=== PATIENT | male | born 2000 | race Two or more races ===

== ENCOUNTER 2025-02-27 13:17 | Emergency (ER) | payer MEDICAID, SELFPAY ==
[2025-02-27 13:51] VITALS: BP 145/84; PULSE 96; RESP 18; TEMP 36.8; O2SAT 99
--- NOTE | 2025-02-27 13:56 | XR_ITS ---
Examination: CT abdomen with intravenous contrast CT pelvis with intravenous contrast 2-D coronal reconstructions 2-D sagittal reconstructions Date and time of exam:February 27, 2025, 5003 hours Comparison March 24, 2019 INDICATIONS: Generalized abdominal pain with nausea vomiting today. CTDI: vol (mGy) 9.25 DLP: (mGycm) 534 Technique: Multiple axial sections of the abdomen and pelvis have been obtained. 64 slice high-resolution scanner used. 3 mm axial sections have been obtained, post intravenous injection 60 cc of Isovue 370 2-D sagittal, coronal reconstructions obtained. Low dose protocols were performed. One or more of the following dose reduction techniques were used; automated exposure control, adjustment of the mA and/or KV according to patient size, use of iterative reconstruction technique. Findings: Diffuse fatty infiltration throughout the liver No definite gallstones Spleen is not enlarged Left adrenal mass, 4.1 cm No renal or ureteral calculi, no hydronephrosis Aorta normal size Normal appendix The entire colon shows mild wall thickening and hyperemia No bowel obstruction No diverticulitis No prostatomegaly Urinary bladder intact Moderate disc narrowing L4-L5, L5-S1 IMPRESSION: Indeterminate left adrenal mass 4.1 cm, recommend MRI abdomen adrenal glands follow-up, pre and postcontrast Normal appendix Diffuse nonspecific colitis pattern, differential would include Crohn's disease, ulcerative colitis
--- NOTE | 2025-02-27 13:56 | PD.EDRME ---
Rapid Medical Screening Exam RME Arrival date/time: 02/27/25 13:17 24-year-old male presents to the emergency dept today complains of abdominal pain Chief Complaint: Nausea/Vomiting/Diarrhea Time Seen by Provider: 02/27/25 13:54 Vital signs: Vital Signs Temperature 98.3 F 02/27/25 13:51 Pulse Rate 96 02/27/25 13:51 Respiratory Rate 18 02/27/25 13:51 Blood Pressure 145/84 H 02/27/25 13:51 Pulse Oximetry (%) 99 02/27/25 13:51 Oxygen Delivery Method Room Air 02/27/25 13:51
--- NOTE | 2025-02-27 14:13 | PD.EDABDPN ---
ED Abdominal Pain RME/HPI General Chief Complaint: Nausea/Vomiting/Diarrhea Stated complaint: VOMITING SINCE 5AM, ABD PAIN Time seen by provider: 02/27/25 13:54 Arrival date/time: 02/27/25 13:17 RME / HPI RME / HPI narrative: 02/27/25 13:17 24-year-old male presents to the emergency dept today complains of abdominal pain DR. GAONA MAIN ED EVALUATION: 24 year old male with past medical history significant for Down Syndrome presents to the Emergency Department brought in by his [id number] with complaint of abdominal pain with associated nausea and vomiting since 5 AM today. Per [id number], patient also has been having dark stools. She also mentions that the patient started not wanting to even drink Pedialyte and was dry heaving. Patient denies any fevers, chills, dysuria, or any other symptoms at this time. Related Data Previous Rx's ?Medication ?Instructions ?Recorded alprazolam 0.25 mg tablet (Xanax) 0.25 mg PO TID PRN anxiety #14 tabs 07/09/18 hydrocortisone 2.5 % topical cream 1 applicatio AR QDAY PRN 09/01/19 with perineal applicator hemorrhoids #30 grams psyllium husk 3.4 gram/5.4 gram 1 tsp PO BID #283 grams 09/01/19 oral powder Allergies Allergy/AdvReac Type Severity Reaction Status Date / Time No Known Allergies Allergy Verified 02/27/25 13:20 Review of Systems Review of Systems Systems Reviewed: All systems reviewed, normal except as documented Past Medical History Past Medical History OTHER HISTORY: Positive Down Syndrome Social History SMOKING STATUS: Never smoker SUBSTANCE USE: does not use ALCOHOL: Never ED Exam Narrative Physical exam: GENERAL APPEARANCE: alert and oriented x 4, well-developed, well-nourished, no acute distress VITALS: All vitals were reviewed and the pulse ox is 99% on room air, which is normal according to my interpretation. HEENT: Normocephalic, atraumatic; pupils equal, round, reactive to light; EOMI; mucous membranes pink, moist; oropharynx clear NECK: Supple LUNGS: CTABL; no wheezes, no rales, no rhonchi HEART: Regular rate, regular rhythm; normal S1, S2; no murmurs ABDOMEN: normal BS; there is right lower abdominal tenderness, with guarding; no masses, no organomegaly, no hernia BACK: no CVA tenderness EXTREMITIES: atraumatic; no edema NEUROLOGIC: awake; alert and oriented x4; cranial nerves II-XII grossly intact; no focal sensory or motor deficits PSYCHIATRIC: appropriate mood and affect SKIN: warm, dry, normal color; no rashes Course Quality Measures none Orders Category Date Time Status CT Screening NOW Care 02/27/25 13:56 Active Insert IV NOW Care 02/27/25 13:[address] abdomen pelvis w con Stat Exams 02/27/25 13:56 Completed CBC Stat Lab 02/27/25 14:11 Completed Comprehensive Metabolic Panel Stat Lab 02/27/25 14:11 Completed Lipase Stat Lab 02/27/25 14:11 Completed UA, C/S IF [Urinalysis, C/S if Indicated] Stat Lab 02/27/25 15:54 Completed CIPROFLOXACIN/D5w 400 MG IVPB [Cipro Ivpb] Med 02/27/25 15:50 Discontinued 400 mg in 200 ml IV X1 Metoclopramide Inj [Reglan Inj] Med 02/27/25 17:16 Discontinued 10 mg IVP X1 ONE Morphine Inj Med 02/27/25 14:13 Discontinued 5 mg IVP X1 ONE Morphine Inj Med 02/27/25 16:39 Discontinued 5 mg IVP X1 ONE Ondansetron Inj [Zofran Inj] Med 02/27/25 14:13 Discontinued 4 mg IV X1 ONE Ondansetron Odt [Zofran Odt] Med 02/27/25 13:56 Discontinued 4 mg PO X1 ONE Sodium Chloride 0.9% 1000 ml [Ns] 1,000 ml Med 02/27/25 15:50 Discontinued IV 999 mls/hr metroNIDAZOLE/NS 500 MG IVPB [Flagyl 500 mg IV] Med 02/27/25 15:50 Active 500 mg in 100 ml IV Q8HR Vital Signs Vital signs: Vital Signs Temperature 98.3 F 02/27/25 13:51 Pulse Rate 96 02/27/25 13:51 Respiratory Rate 18 02/27/25 13:51 Blood Pressure 145/84 H 02/27/25 13:51 Pulse Oximetry (%) 99 02/27/25 13:51 Oxygen Delivery Method Room Air 02/27/25 13:51 Abdominal Pain MDM MDM Narrative MDM Narrative:: I, Pat Mert, am scribing for and in the presence of Dr. Gaona. Patient data External records reviewed:: [facility] previous records (Reviewed last ED visit dated 07/14/22, discharged with the following: Chest wall pain) Clinical information provided by:: patient and family ([id number]) Social determinants that could affect healthcare access:: none Patient has the following chronic illnesses:: Down Syndrome How is presenting disease/condition affected by chronic disease/condition?: uneffected by Evaluation data The following diagnostics were reviewed and interpreted by me:: lab results and radiology exam(s) Lab and/or radiology exams considered but not ordered:: none Interpretation Summary: Procedure(s): CT abdomen pelvis w con Accession Number(s): [id number] cc: Pb (USHA),Fadi KERR; Mele Tolbert MD; Kiran Goldsmith MD~ Examination: CT abdomen with intravenous contrast CT pelvis with intravenous contrast 2-D coronal reconstructions 2-D sagittal reconstructions Date and time of exam:February 27, 2025, 5003 hours Comparison March 24, 2019 INDICATIONS: Generalized abdominal pain with nausea vomiting today. CTDI: vol (mGy) 9.25 DLP: (mGycm) 534 Technique: Multiple axial sections of the abdomen and pelvis have been obtained. 64 slice high-resolution scanner used. 3 mm axial sections have been obtained, post intravenous injection 60 cc of Isovue 370 2-D sagittal, coronal reconstructions obtained. Low dose protocols were performed. One or more of the following dose reduction techniques were used; automated exposure control, adjustment of the mA and/or KV according to patient size, use of iterative reconstruction technique. Findings: Diffuse fatty infiltration throughout the liver No definite gallstones Spleen is not enlarged Left adrenal mass, 4.1 cm No renal or ureteral calculi, no hydronephrosis Aorta normal size Normal appendix The entire colon shows mild wall thickening and hyperemia No bowel obstruction No diverticulitis No prostatomegaly Urinary bladder intact Moderate disc narrowing L4-L5, L5-S1 IMPRESSION: Indeterminate left adrenal mass 4.1 cm, recommend MRI abdomen adrenal glands follow-up, pre and postcontrast Normal appendix Diffuse nonspecific colitis pattern, differential would include Crohn's disease, ulcerative colitis Dictated By: Kiran Goldsmith MD Medications / Prescriptions Medications or Prescriptions considered but not ordered:: none Medication administrations:: Medication Administration History Metronidazole (Flagyl 500 Mg Iv) 500 mg in 100 mls @ 200 mls/hr IV Q8HR POP Stop: 03/06/25 15:49 Last Infusion: 02/27/25 16:39 Dose: Infused Documented By: Admin: 02/27/25 16:10 Dose: 200 mls/hr Documented By: THUY Discontinued Medications Sodium Chloride (Ns) 1,000 mls @ 999 mls/hr IV .Q1H1M ONE Stop: 02/27/25 16:50 Last Infusion: 02/27/25 17:27 Dose: Infused Documented By: Admin: 02/27/25 16:07 Dose: 999 mls/hr Documented By: THUY Ciprofloxacin/Dextrose (Cipro Ivpb) 400 mg in 200 mls @ 200 mls/hr IV X1 ONE Stop: 02/27/25 16:49 Last Admin: 02/27/25 16:39 Dose: 200 mls/hr Documented By: THUY Metoclopramide HCl (Metoclopramide Inj 5 Mg/Ml Vial 2 Ml) 10 mg IVP X1 ONE; Protocol Stop: 02/27/25 17:17 Last Admin: 02/27/25 17:23 Dose: 10 mg Documented By: THUY Morphine Sulfate (Morphine Sulf Inj 10 Mg/Ml Vial) 5 mg IVP X1 ONE Stop: 02/27/25 14:14 Last Admin: 02/27/25 14:43 Dose: 5 mg Documented By: LEXY Morphine Sulfate (Morphine Sulf Inj 10 Mg/Ml Vial) 5 mg IVP X1 ONE Stop: 02/27/25 16:40 Last Admin: 02/27/25 16:51 Dose: 5 mg Documented By: THUY Ondansetron HCl (Ondansetron Odt 4 Mg Tabrap) 4 mg PO X1 ONE; Protocol Stop: 02/27/25 13:57 Last Admin: 02/27/25 14:55 Dose: Not Given Documented By: THUY Non-Admin Reason: Patient Refused Ondansetron HCl (Ondansetron Inj 2 Mg/Ml Inj 2 Ml) 4 mg IV X1 ONE Stop: 02/27/25 14:14 Last Admin: 02/27/25 14:44 Dose: 4 mg Documented By: LEXY see above Consultations Consultation(s) initiated? (list below): No Diagnosis Differential diagnosis abdominal pain: abdominal pain, acute appendicitis and calculus of kidney Most likely diagnosis given after review of the tests above:: No official diagnoses at this time, still pending diagnostic tests. Patient signout to the night shift supervisor provider. Admission Indicated Admission indicated?: not indicated Explain why admission is indicated or not indicated:: No final disposition plan at this time, still pending diagnostic tests. Patient signout to the night shift supervisor provider. Admission Request Was there a request for admission?: No Disposition Plan Disposition Plan: other (specify) (Patient signout to the night shift supervisor provider, pending reevaluation for possible intractable nausea and vomiting, and final disposition.) Discharge Plan Prescriptions/Referrals Prescriptions/Med Rec: No Action psyllium husk 3.4 gram/5.4 gram powder 1 tsp PO BID Qty: 283 0RF Rx Instructions: mix into at least 4 oz water or juice before administering hydrocortisone 2.5 % cream with perineal applicator 1 applicatio AR QDAY PRN (Reason: hemorrhoids) Qty: 30 0RF alprazolam [Xanax] 0.25 mg tablet 0.25 mg PO TID PRN (Reason: anxiety) Qty: 14 0RF Referrals: Mele Tolbert MD [Primary Care Provider] - In 1 week Patient/Caregiver Discharge Instructions Print Language: Luxembourgish
[2025-02-27 14:25] LABS: Basophils % (Auto) 0 % (0-2.5); Eosinophils % (Auto) 0 % (0-10); Hematocrit 48.4 % (41.0-53.0); Hemoglobin 16.9 g/dL (13.5-16.0); Immature Granulocytes % (Auto) 1 % (0-0); Immature Granulocytes Auto 0.11 Thou/mm3 (0.00-0.00); Lymphocytes # (Auto) 0.5 Thou/mm3 (1.0-4.8); Lymphocytes % (Auto) 3 % (10-50); Mean Corpuscular HGB Conc 34.9 g/dl (31.0-37.0); Mean Corpuscular Hemoglobin 30.6 pg (25.0-35.0); Mean Corpuscular Volume 88 fL (80-100); Monocytes # (Auto) 0.4 Thou/mm3 (0.0-0.8); Monocytes % (Auto) 2 % (0-12); Neutrophils # (Auto) 18.3 Thou/mm3 (1.8-7.7); Neutrophils % (Auto) 94 % (37-80); Nucleated Red Blood Cell % 0 /100 WBC (0); Platelet Count 282 Thou/mm3 (140-440); Red Blood Count 5.53 Miln/mm3 (4.50-5.90); White Blood Count 19.3 Thou/mm3 (3.8-10.6)
[2025-02-27 14:40] LABS: Alanine Aminotransferase 18 U/L (10-49); Albumin, Serum 4.6 gm/dL (3.5-5.0); Albumin/Globulin Ratio 1.4 (1.2-2.2); Alkaline Phosphatase 112 U/L (46-116); Anion Gap 8 (7-16); Aspartate Amino Transferase 20 U/L (0-34); BUN/Creatinine Ratio 17 Ratio (12-20); Bilirubin,Total 0.9 mg/dL (0.3-1.2); Blood Urea Nitrogen 15 mg/dL (9-23); Calcium 9.6 mg/dL (8.3-10.6); Calcium (Corrected) 9.6 mg/dL (8.5-10.1); Carbon Dioxide 25.8 mMol/L (20.0-31.0); Chloride 105 mMol/L (98-107); Creatinine (Component) 0.9 mg/dL (0.6-1.3); Globulin 3.2 gm/dL (2.3-3.5); Glucose 113 mg/dL (74-106); Lipase 28 U/L (12-53); Osmolality,Calculated 279 (275-295); Sodium 139 mMol/L (136-145); Total Protein 7.8 gm/dL (5.7-8.2); eGFR > 60 See Note
[2025-02-27] MEDS: MORPHINE SULF INJ 10 MG/ML VIAL 5 MG IVP ×2 (14:43→16:51)
[2025-02-27] MEDS: ONDANSETRON INJ 2 MG/ML INJ 2 ML 4 MG IV (14:44)
[2025-02-27 14:49] VITALS: BMI 39.0
[2025-02-27 15:57] LABS: Collection Type, Urine Clean Catch
[2025-02-27] MEDS: SODIUM CHLORIDE 0.9% 1000 ML 1,000 ML 999 ML IV (16:07)
[2025-02-27 16:10] LABS: Bilirubin,Urine Negative (Negative); Blood,Urine Negative (Negative); Clarity,Urine Clear (Clear/Hazy); Color,Urine Lt-Yellow (Lt Yel-Yel); Culture Indicated,Urine Not Indicated; Glucose, Urine Negative (Negative); Ketones,Urine Negative (Negative); Leukocyte Esterase,Urine Negative (Negative); Nitrite,Urine Negative (Negative); PH,Urine 7.5 (5.0-7.0); Protein,Urine Negative (Neg - Trace); RBC,Urine 1 /hpf (0-3); Squamous Epithelial Cell,Urine < 1 /hpf (0-5); Urobilinogen,Urine Negative mg/dL (0.0-1.0); WBC,Urine < 1 /hpf (0-5)
[2025-02-27] MEDS: metroNIDAZOLE/NS 500 MG IVPB 500 MG/100 ML BAG 200 MG IV (16:10)
[2025-02-27 16:13] LABS: Specific Gravity,Urine 1.015 (1.001-1.035)
[2025-02-27 16:33] VITALS: BP 135/92; PULSE 94; RESP 18; TEMP 36.8; O2SAT 95
[2025-02-27] MEDS: CIPROFLOXACIN/D5w 400 MG IVPB 400 MG/200 ML BAG 200 MG IV (16:39)
[2025-02-27] MEDS: METOCLOPRAMIDE INJ 5 MG/ML VIAL 2 ML 10 MG IVP (17:23)
[2025-02-27 18:09] VITALS: BP 144/93; PULSE 100; RESP 16; TEMP 36.4; O2SAT 95
--- NOTE | 2025-02-27 19:10 | PD.EDADDENDU ---
Emergency Room Addendum Addendum Narrative: Care assumed from Dr. chicas, the previous shift emergency physician. Past medical, surgical, social and family history reviewed. Vitals and home medications reviewed. Results and treatment plan discussed. I will assume the care of the patient at this time and will follow the patient, pending p.o. trial and reevaluation. Patient feels better and is able to tolerate p.o. here in emergency department. PE: Physical exam includes an abdominal exam which is nontender nondistended. The patient generally sitting up in bed, talkative with his family member. Skin is moist. Plan: Will discharge the patient. Cipro was given for 3 days. The patient should follow-up with primary care in the next 72 hours for recheck. Return precautions are given and understood.
[2025-02-27 19:14] VITALS: BP 121/78; PULSE 94; RESP 19; TEMP 36.3; O2SAT 99
== END 2025-02-27 19:32 | disposition home or self-care (01) ==
PROVIDERS: Nurse Practitioner Primary Care; Emergency Provider Emergency Medicine; PCP Family Medicine
DX: R11.2 Nausea with vomiting, unspecified (principal); R10.84 Generalized abdominal pain
CPT/HCPCS: 36415; 74177; 80053; 81001; 83690; 85025; 96365; 96366; 96367; 96375; 96376; 99285; A4649; J0744; J2270; J2405; J2765; J3490; J7030; Q9967; J1836